=== PATIENT | female | born 1985 | race Caucasian/White ===

== ENCOUNTER 2020-08-03 03:08 | Inpatient (IN) ==
--- OUTSIDE RECORDS SUMMARY | 2020-08-03 03:17 | External Medical Summary | Continuity of Care Document ---
:1985 Author Name Hattie Lowery Address Unavailable Unavailable , Care Team Providers Name Role Phone Unavailable Unavailable Unavailable Glenn Collado M.D. 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 Sebastián Collado Start: 28-Jun-2012 Quantity: 1 Refills: 0 Procedures History of Dilation And Curettage Status : Completed History of Myringotomy - With Ventilating Tube Insertion Status: Completed Oral Contraceptives History of Gynecologic Services Intrauterine Device (IUD) Status: Completed Insertion History of Counseling for initiation of control method Status: Completed History of Supervision of normal Status: Completed Immunizations Immunizations not documented Family History Grandfather Family history of Acute Myocardial Infarction (V17.3) Status : Active Family history of Diabetes Mellitus (V18.0) Status: Active Grandmother Family history of Diabetes Mellitus (V18.0) Status: Active Mother Family history of Diabetes Mellitus (V18.0) Status: Active Sister Family history of Impaired Fasting Glucose Status: Active Unknown Family Member Family history of Diabetes Mellitus (V18.0) Status: Active Comments: Family History Social History - Smoking Status Smoker Plan of Treatment Planned Observations Planned Goals not documented Results No Known Results Results not documented
[2020-08-03] MEDS ORDERED: OXYTOCIN 30 UNITS/500 ML BAG IV PRN ×3 (03:38→10:48)
[2020-08-03 04:04] LABS: Hematocrit (blood only) 30.3 % (37-47); Hemoglobin 10.2 g/dL (12.0-16.0); Mean Corpuscular Hemoglobin 27.9 pg (25-34); Mean Corpuscular Hgb Conc 33.7 g/dL (32-36); Mean Platelet Volume 9.5 fL (7.4-10.4); Platelet Count 209 K/uL (130-400); RDW Coefficient of Variation 14.2 % (11.5-14.5); RDW Standard Deviation 42.8 fL (36.4-46.3); Red Blood Count 3.65 M/uL (4.2-5.4)
[2020-08-03] MEDS: LACTATED RINGER'S 1,000 ML IV PRN ×3 (04:08→08:17)
--- NOTE | 2020-08-03 04:16 | History & Physical Report ---
Date of Service August 03, 2020 Assessment & Plan (1) Spontaneous rupture of amniotic membranes: Patient is a 35-year-old -0-2-4 at 39 weeks of gestation presenting with spontaneous rupture of membranes and regular contractions. Vital signs stable afebrile Smoking during heart rate with decreased variability, increased after scalp summation and IV fluids was started. GBS neg COVID negative Plan to admit monitor, labs and desires expectant management Discussed Pitocin augmentation and decreased risk of intraamniotic infection, but wants to think about it and then decide History of Present Illness Primary Care Provider: Ryley Rushing MD Patient is a 35-year-old -0-2-4 at 39.1 weeks of gestation who presented to labor and delivery with leakage of fluid since 2 AM. It was clear per patient's. Confirmed by [facility] by nursing team. Patient feels contractions 10 minutes and they are mild. No vaginal bleeding. Baby has been moving. Her has been uncomplicated except tobacco use during . She states she is smokes almost a pack a day. She smoked this morning before she came in. Patient denies any medical problems AMA: Diony low risk GBS negative Allergies Allergy/AdvReac Type Severity Reaction Status Date / Time bee venom protein (honey bee) Allergy Unknown . 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 Beliefs That Will Affect Care: None marital status: Single Current Living Situation: Family Other Information That Helps Us Care for You: No Feels Safe at Home: Yes Safety Concerns: Feels Safe At This Time Assistive Devices: None OB History 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 increased after scalp stimulation and IVF) Results & Data ([facility]) Vital Signs (Past 12 Hours) Vital Signs Temp Pulse Resp BP 08/03/20 03:33 36.9 C 101 H 18 132/81 08/03/20 03:32 101 H 132/81
--- NOTE | 2020-08-03 07:45 | Obstetrical Progress Note ---
Date of Service August 03, 2020 Assessment & Plan Admission and Anticipated Discharge Date Admission Date: August 03, 2020 Physical Exam Genitourinary: Manual OB Exam: + cervical dilation 4 cm, + cervical effacement 80%, + station 0 and + amniotic fluid clear OB Exam Monitor Tracing: + external FHT monitor used, + external uterine monitor used, + category I and + normal FHT variability Results & Data ([facility]) Vital Signs (Past 12 Hours) Vital Signs Temp Pulse Resp BP 08/03/20 07:05 36.9 C 84 20 117/74 08/03/20 06:38 97 H 18 137/61 08/03/20 05:29 36.5 C 08/03/20 03:33 36.9 C 101 H 18 132/81 08/03/20 03:32 101 H 132/81
[2020-08-03] MEDS ORDERED: SODIUM CHLORIDE 0.9% INJ 10 ML VIAL ONE (07:46)
[2020-08-03] MEDS ORDERED: BUPIVACAINE 0.25% 30 ML VIAL ONE (07:46)
[2020-08-03] MEDS ORDERED: fentaNYL 2MCG/ML ROPIVACAINE 1.25MG/ML 100 ML BAG EPI ONE (07:46)
[2020-08-03] MEDS ORDERED: fentaNYL citrate 100 MCG/2 ML VIAL ONE (07:46)
[2020-08-03] MEDS ORDERED: ePHEDrine sulfate 50 MG/ML AMP ONE (07:46)
--- NOTE | 2020-08-03 08:06 | Anesthesiology Consultation ---
Date of Service August 03, 2020 Assessment & Plan (1) Encounter for pre-operative examination: Chart Review Chart Review: Acceptable Risk for Labor Epidural Consults Requested none ASA ASA2 Proposed Anesthesia Anesthesia Type: Labor Epidural Risk / Benefits Reviewed With: PT / POA / Parent / Guardian, Accepts Plan and Informed Consent Obtained History Height/Weight Height: 5 ft 1 in Weight: 62.142 kg Allergies Allergy/AdvReac Type Severity Reaction Status Date / Time bee venom protein (honey bee) Allergy Unknown . Verified 04/08/12 19:25 Medications Home Medications Medication Instructions Recorded Confirmed Last Taken omeprazole magnesium [Prilosec OTC] 20 mg PO DAILY 08/03/20 08/03/20 08/02/20 Active Medications Generic Name Dose Route Start Last Admin Trade Name Freq PRN Reason Stop Dose Admin Lactated Ringer's 1,000 mls @ 125 mls/hr 08/03/20 03:38 08/03/20 07:29 Lr IV 08/05/20 03:37 125 mls/hr .Q8H PRN Infusion L&D Protocol Protocol Oxytocin 30 units in 500 mls @ 4 mls/hr 08/03/20 04:29 08/03/20 07:30 Pitocin IV 08/05/20 04:28 0.24 units/hr .Q24H PRN 4 mls/hr Labor Induction/Augmentation Titration Protocol 0.24 UNITS/HR Exercise / Class Metabolic Activity II 4-5 Yardwork/Stairs/Walk up hill Past Anesthesia History No Hx of Anesthesia Complications and No Family Hx of Anesthesia Complications History of PONV No Hx of PONV and No Hx of Motion Sickness Social History Smoking Status: Current every day smoker tobacco type: cigarettes Smoking cigarettes per day: 20 Do You Dip or Chew Tobacco: No Hx Alcohol Use: No Hx Substance Use: No Physical Exam Vital Signs Last Vital Signs Temp 98.4 F 08/03/20 07:05 Pulse 95 H 08/03/20 08:00 Resp 20 08/03/20 07:05 BP 132/76 08/03/20 07:51 Pulse Ox 98 08/03/20 08:00 ENMT Mouth: no dentition abnormality Thyromental Distance: > or= 3.5 Finger Breadths Mallampati Class: II Neck normal visual inspection Respiratory normal respiratory effort Auscultation: lungs clear to auscultation bilaterally Cardiovascular Rate/Rhythm: regular rate and regular rhythm Testing Laboratory Results 08/03/20 03:56
[2020-08-03] MEDS ORDERED: ONDANSETRON INJ 2 MG/ML 2 ML VIAL IV PRN (08:25)
[2020-08-03] MEDS ORDERED: fentaNYL 2MCG/ML ROPIVACAINE 1.25MG/ML 100 ML BAG EPI PRN (08:25)
[2020-08-03] MEDS ORDERED: ePHEDrine sulfate 50 MG/ML AMP IV PRN (08:25)
[2020-08-03] MEDS ORDERED: NALOXONE HCL 1 MG in SODIUM CHLORIDE 0.9% 1000ML 1,000 ML IV PRN (08:25)
[2020-08-03] MEDS ORDERED: NALOXONE HCL 0.4 MG/1 ML VIAL/CARP IV PRN (08:25)
[2020-08-03] MEDS ORDERED: diphenhydrAMINE 50 MG/ML VIAL IV PRN (08:25)
[2020-08-03] MEDS ORDERED: METHYLERGONOVINE MALEATE 0.2 MG/ML AMP ONE (08:35)
[2020-08-03] MEDS ORDERED: CARBOPROST TROMETHAMINE 250 MCG/ML AMPUL ONE (08:35)
--- NOTE | 2020-08-03 09:59 | Delivery Summary ---
Vaginal Delivery Summary Date of Service August 03, 2020 Vaginal Delivery Summary Delivery note live female BEATRICE over intact perineum with delayed cord clamping and Apgars 8/9 weight pending. Cord blood obtained and placenta delivered spontaneously and intact. No tears. EBL 100 ml. Final sponge and instrument count are correct. Mom and baby stable.
--- NOTE | 2020-08-03 10:22 | Anesthesia Procedure Note ---
Date of Service August 03, 2020 Anesthesia Post Epidural Note Vital Signs Vital Signs: Temp Pulse Resp BP Pulse Ox 98.4 F 88 20 128/69 98 08/03/20 07:05 08/03/20 10:15 08/03/20 10:01 08/03/20 10:15 08/03/20 09:48 Notes Mental Status: alert / awake / arousable and participated in evaluation Nausea / Vomiting: adequately controlled Pain: adequately controlled Airway Patency, RR, SpO2: stable & adequate BP & HR: stable & adequate Hydration State: stable & adequate Neuraxial Anesthesia: was administered and sensory block is resolving Anesthetic Complications: no major complications apparent and Pt Satisfied with anesthetic care Epidural: Removed without complications and With tip intact
[2020-08-03] MEDS ORDERED: DIPHTHERIA/TETANUS/PERTUSSIS 0.5 ML SYR/VIAL IM ONE (10:48)
[2020-08-03] MEDS ORDERED: bisacodyL 10 MG SUPP PR PRN (10:48)
[2020-08-03] MEDS ORDERED: ACETAMINOPHEN 325 MG TAB PO PRN (10:48)
[2020-08-03] MEDS ORDERED: SUPERCREAM 0.870% 15 GM JAR EXT PRN (10:48)
[2020-08-03] MEDS ORDERED: HYDROCORTISONE ACETATE 25 MG SUPP PR PRN (10:48)
[2020-08-03] MEDS ORDERED: BENZOCAINE 20% AER SPR 82.5 GM CAN EXT PRN (10:48)
[2020-08-03] MEDS: IBUPROFEN 600 MG TAB PO PRN ×3 (13:19→23:06)
[2020-08-03] MEDS: NICOTINE 21 MG/24 HR TDSY TD SCH (15:28)
[2020-08-03] MEDS: DOCUSATE SODIUM 100 MG CAP PO SCH (20:35)
[2020-08-04] MEDS: IBUPROFEN 600 MG TAB PO PRN (06:00)
[2020-08-04 06:38] LABS: Hematocrit (blood only) 25.1 % (37-47); Hemoglobin 8.5 g/dL (12.0-16.0); Mean Corpuscular Hemoglobin 28.2 pg (25-34); Mean Corpuscular Hgb Conc 33.9 g/dL (32-36); Mean Corpuscular Volume 83.4 fL (80-100); Mean Platelet Volume 9.7 fL (7.4-10.4); Platelet Count 245 K/uL (130-400); RDW Coefficient of Variation 14.4 % (11.5-14.5); RDW Standard Deviation 43.7 fL (36.4-46.3); Red Blood Count 3.01 M/uL (4.2-5.4); White Blood Count 17.89 K/uL (4.8-10.8)
[2020-08-04] MEDS ORDERED: PRENATAL VITAMIN 1 TAB PO SCH (08:00)
[2020-08-04] MEDS ORDERED: FERROUS SULFATE 325 MG TAB PO SCH (08:30)
[2020-08-04] MEDS ORDERED: PANTOprazole 40 MG TAB PO SCH (09:00)
[2020-08-04] MEDS: DOCUSATE SODIUM 100 MG CAP PO SCH (09:02)
[2020-08-04] MEDS: NICOTINE 21 MG/24 HR TDSY TD SCH (09:03)
--- NOTE | 2020-08-04 09:17 | Obstetrical Progress Note ---
Date of Service August 04, 2020 Assessment & Plan Admission and Anticipated Discharge Date Admission Date: August 03, 2020 Subjective Patient is seen and examined. She feels well, no complaints. Desires d/c today Ambulating without dizziness Voiding without difficulty Tolerating regular diet with out N&V Bleeding is minimal No fever/ chills/ CP/ SOB/ N&V/ Leg pain Breast feeding without problems Lab Results 08/03/20 08/03/20 08/03/20 Range/Units 03:56 Unknown Unknown WBC 18.90 H (4.8-10.8) K/uL RBC 3.65 L (4.2-5.4) M/uL Hgb 10.2 L (12.0-16.0) g/dL Hct 30.3 L (37-47) % MCV 83.0 (80-100) fL MCH 27.9 (25-34) pg MCHC 33.7 (32-36) g/dL RDW Std Deviation 42.8 (36.4-46.3) fL RDW Coeff of Cornelia 14.2 (11.5-14.5) % Plt Count 209 (130-400) K/uL MPV 9.5 (7.4-10.4) fL COVID-19 Eval Order Covid19 [facility] SARS-CoV-2, RNA, NAAT NEGATIVE (NEGATIVE) 08/04/20 Range/Units 06:06 WBC 17.89 H (4.8-10.8) K/uL RBC 3.01 L (4.2-5.4) M/uL Hgb 8.5 L (12.0-16.0) g/dL Hct 25.1 L (37-47) % MCV 83.4 (80-100) fL MCH 28.2 (25-34) pg MCHC 33.9 (32-36) g/dL RDW Std Deviation 43.7 (36.4-46.3) fL RDW Coeff of Cornelia 14.4 (11.5-14.5) % Plt Count 245 (130-400) K/uL MPV 9.7 (7.4-10.4) fL COVID-19 Eval Order SARS-CoV-2, RNA, NAAT (NEGATIVE) Vital Signs Temp Pulse Resp BP 08/04/20 03:45 36.7 C 108 H 18 118/80 08/03/20 23:30 36.8 C 80 18 126/84 Vital Signs Temp Pulse Pulse Pulse Resp BP BP 08/04/20 03:45 36.7 C 108 H 18 118/80 08/03/20 23:30 36.8 C 80 18 126/84 08/03/20 20:30 36.9 C 80 18 08/03/20 15:15 36.8 C 78 18 08/03/20 13:10 36.4 C L 90 18 08/03/20 12:36 88 20 112/71 08/03/20 12:30 84 118/75 08/03/20 12:15 87 20 112/72 08/03/20 12:00 98 H 118/77 08/03/20 11:45 86 20 121/74 08/03/20 11:30 95 H 112/79 08/03/20 11:15 97 H 20 127/86 08/03/20 11:00 88 121/84 08/03/20 10:45 89 20 114/80 08/03/20 10:30 94 H 121/72 08/03/20 10:15 88 20 128/69 08/03/20 10:01 104 H 20 135/67 08/03/20 09:54 123 H 136/77 08/03/20 09:48 107 H 08/03/20 09:45 109 H 136/86 08/03/20 09:43 105 H 08/03/20 09:39 106 H 08/03/20 09:38 98 H 08/03/20 09:34 94 H 08/03/20 09:33 105 H 08/03/20 09:30 93 H 116/76 08/03/20 09:29 98 H 08/03/20 09:28 103 H 08/03/20 09:23 100 H 08/03/20 09:18 106 H 08/03/20 09:17 97 H BP Pulse Ox 08/04/20 03:45 08/03/20 23:30 08/03/20 20:30 125/78 08/03/20 15:15 109/73 08/03/20 13:10 119/78 98 08/03/20 12:36 08/03/20 12:30 08/03/20 12:15 08/03/20 12:00 08/03/20 11:45 08/03/20 11:30 08/03/20 11:15 08/03/20 11:00 08/03/20 10:45 08/03/20 10:30 08/03/20 10:15 08/03/20 10:01 08/03/20 09:54 08/03/20 09:48 98 08/03/20 09:45 91 08/03/20 09:43 98 08/03/20 09:39 91 08/03/20 09:38 98 08/03/20 09:34 93 08/03/20 09:33 79 L 08/03/20 09:30 08/03/20 09:29 91 08/03/20 09:28 98 08/03/20 09:23 89 L 08/03/20 09:18 93 08/03/20 09:17 92 PE: General: Alert, orientedx3, NAD Abd: soft, NT, fundus firm, below Umbilicus Perineum intact, Lochia rubra minimal Ext; NT, no edema AP: 35 yo s/p , ppd# 1 VSS Afebrile doing well Continue routine care All questions were answered Desires d/c today Discussed when to call D/C home , f/u in office Results & Data ([facility]) Vital Signs (Past 12 Hours) Vital Signs Temp Pulse Resp BP 08/04/20 03:45 36.7 C 108 H 18 118/80 08/03/20 23:30 36.8 C 80 18 126/84
[2020-08-04] MEDS ORDERED: bisacodyL 5 MG TABEC PO SCH (20:00)
== END 2020-08-04 10:30 | disposition home or self-care (01) | DRG 807 ==
LOC: OPB 03:08 → 4S1 03:14 → 4S2 12:53